=== PATIENT | female | born 1975 | race Caucasian/White ===

== ENCOUNTER 2018-10-13 22:49 | Emergency (ER) | payer BC ==
[~2018-10-13] VITALS: Ht 165.1 cm; Wt 99.8 kg
[2018-10-13 23:00] VITALS: BP 124/80
--- NOTE | 2018-10-13 23:16 | NUR ---
BIBSELF FROM HOME. AAOX4. NAD NOTED, BREATHING EVEN AND UNLABORED. AMBULATORY. CAME IN TO BE CHECKED AFTER SHE HIT HER THE TOP OF HER HEAD UNDER THE COUNTER AFTER STANDING UP. PT DENIES PAIN AT TIME OF ASSESSMENT, SKIN INTACT AND DENIES KO. NO NEURO DEFICIT NOTED UPON ASSESSMENT. TO ER BED 9. AWAITING MD FOR EVAL AND ORDERS
--- NOTE | 2018-10-13 23:16 | NUR ---
Note stalin in EDM - 10/13/18 at 2320 by JAYCE BIBSELF FROM HOME. AAOX4. NAD NOTED, BREATHING EVEN AND UNLABORED. AMBULATORY. CAME IN TO BE CHECKED AFTER SHE HIT HER THE TOP OF HER HEAD UNDER THE COUNTER AFTER STANDING UP. PT DENIES PAIN AT TIME OF ASSESSMENT, SKIN INTACT AND DENIES KO. TO ER BED 9. AWAITING MD FOR EVAL AND ORDERS
== END 2018-10-13 23:48 | disposition home or self-care (01) ==
LOC: ER 22:51
DX: S09.8XXA Other specified injuries of head, initial encounter (principal); R51 Headache; Z98.890 Other specified postprocedural states; Z60.2 Problems related to living alone; W22.8XXA Striking against or struck by other objects, initial encounter; Y93.89 Activity, other specified; Y92.000 Kitchen of unspecified non-institutional (private) residence as the place of occurrence of the external cause; Y99.8 Other external cause status

== ENCOUNTER 2024-09-27 15:37 | Emergency (ER) | payer BC ==
[~2024-09-27] VITALS: Ht 165.1 cm; Wt 119.7 kg
[2024-09-27 15:47] VITALS: BP 169/85; TEMP 98.5; O2SAT 100
[2024-09-27 16:41] LABS: CALCIUM, SERUM 9.2 mg/dL (8.5-10.1); CARBON DIOXIDE 25 mmol/L (21-32); CHLORIDE 107 mmol/L (98-107); CREATININE 0.8 mg/dL (0.6-1.3); GLUCOSE 106 mg/dL (74-106); POTASSIUM 4.1 mmol/L (3.5-5.1); SODIUM SERUM 141 mmol/L (136-145); UREA NITROGEN, BLOOD 13 mg/dL (7-18)
[2024-09-27 16:45] LABS: BASOPHILS # (AUTO) 0.1 K/uL (0.0-0.2); BASOPHILS % (AUTO) 0.8 % (0.0-2.0); EOSINOPHILS # (AUTO) 0.2 K/uL (0.0-0.7); EOSINOPHILS % (AUTO) 1.5 % (0.0-6.0); HEMATOCRIT 38 % (33-45); HEMOGLOBIN 12.8 g/dL (11.5-14.8); LYMPHOCYTES # (AUTO) 2.2 K/uL (0.8-4.8); LYMPHOCYTES % (AUTO) 22.1 % (20.0-44.0); MEAN CORPUSCULAR HEMOGLOBIN 32 PG (26.0-33.0); MEAN CORPUSCULAR HGB CONC 34 g/dl (31.0-36.0); MEAN CORPUSCULAR VOLUME 93 fL (82-100); MONOCYTES # (AUTO) 0.7 K/uL (0.1-1.30); MONOCYTES % (AUTO) 6.8 % (2.0-12.0); NEUTROPHILS # (AUTO) 6.9 K/uL (1.8-8.9); NEUTROPHILS % (AUTO) 68.8 % (43.0-81.0); PLATELET COUNT (AUTO) 335 K/uL (150-450); RED BLOOD CELL COUNT(AUTO) 4.01 MIL/uL (4.0-5.2); RED CELL DISTRIBUTION WIDTH 12.6 % (11.5-15.0)
[2024-09-27] MEDS ORDERED: IBUP-1490 PO (17:39)
== END 2024-09-28 01:59 | disposition home or self-care (01) ==
LOC: ER 15:49
DX: R07.89 Other chest pain (principal); R06.02 Shortness of breath; Z60.2 Problems related to living alone
CPT/HCPCS: 36415; 71045-TC; 80048-TC; 84484-TC; 84703-TC; 85025-TC